=== PATIENT | female | born 1990 | race Caucasian/White ===

== ENCOUNTER → 2024-02-16 07:50 | Outpatient (REF) | payer OTHER, SELFPAY | LOC: HWRAD 07:50 | PROVIDERS: ATTENDING PHYSICIAN Nurse Practitioner | DX: K76.0 Fatty (change of) liver, not elsewhere classified (principal) | CPT/HCPCS: 76700 ==

== ENCOUNTER 2024-06-23 13:27 | Emergency (ER) | payer OTHER, SELFPAY ==
[2024-06-23 13:35] VITALS: BP 122/77
--- NOTE | 2024-06-23 14:06 | ED.GENMED ---
History of Present Illness
General
Chief Complaint: Swelling
Source: patient
Exam Limitations: none
Time Seen by Provider: 06/23/24 14:00
Nursing documentation reviewed up to this point in time: agreed with
History of Present Illness
History of Present Illness:
Patient to ED with complaint of pain and tingling to RLE. Significant varicose veins noted to BLE. Symptoms started this week. Denies fever/chills, recent illness. No history of DVT, PE. Denies any SOB, CP/pressure Brought self to ED for eval.
Past History
Past History
ED Past Medical History: None
ED Past Surgical History:
Social History
Tobacco: Non-smoker
Alcohol: Occasional
Personal:
Review of Systems
Review of Systems
Allergies reviewed?: Yes
All Other Systems: ROS reviewed and negative except as documented in HPI and ROS
Constitutional: Reports no symptoms
EENT: Reports no symptoms
Respiratory: Reports no symptoms
Cardiac: Reports no symptoms
ABD/GI: Reports no symptoms
Musculoskeletal: Reports other (RLE pain, swelling)
Skin: Reports no symptoms
Neurological: Reports no symptoms
Psychiatric: Reports no symptoms
Phy Exam
General Physical Exam
General Presentation: well appearing and no apparent distress
General age: appears stated age
General Skin: warm and dry
General Habitus: normal
General Mental: alert
Musculoskeletal Exam
Musculoskeletal Exam: full ROM, neuro vasc intact and other (No erythema, no wounds)
Skin Exam
Skin Exam: normal color, warm/dry, no rash and other (many varicosities noted BLE)
Psychiatric Exam
Psychiatric Exam: normal mood/affect
Course
Orders/Labs/Results
Orders:
Orders
06/23/24 14:05
US Periph Venous LOWER Ext RT Urgent
Comment:
Reason For Exam: pain, swelling
Vital Signs
Initial and Last Documented VS:
Initial Vital Signs
Temp Pulse Resp BP Pulse Ox
98 F 79 16 122/77 98
06/23/24 13:35 06/23/24 13:35 06/23/24 13:35 06/23/24 13:35 06/23/24 13:35
Last Documented Vital Signs
Temp Pulse Resp BP Pulse Ox
98 F 79 16 122/77 98
06/23/24 13:35 06/23/24 13:35 06/23/24 13:35 06/23/24 13:35 06/23/24 13:35
*Radiology
Radiology exam reviewed: radiology read reviewed
*Pulse Oximetry
Patient hypoxic: no
*Critical Care Note
Total Time (30-74mins, 75-104mins- exclusive of procedures): Not Applicable
Update Note
Update Note:
US results discussed with patient. No evidence of DVT. She isdischarged home and will follow up with PCP on Tuesday.
ED Attending Note
-
Portions of this chart may have been created with voice recognition software.� Occasional wrong word or��sound alike� substitutions may have occurred due to the inherent limitations of voice recognition software.
Discharge Plan
Departure
Patient Disposition: Home (Routine Discharge)
Date of Disposition: 06/23/24
Time of Disposition: 17:05
Patient with high blood pressure during this ER visit?: No
Condition: Good
Covid-19: Not Applicable
Discharge Problem:
Varicose veins of lower extremity with pain
Instructions: Treatment of Varicose Veins of the Leg, Varicose Veins (DC), Ibuprofen
Prescriptions:
No Action
[id number] fum-folic 1 EACH tablet
1 ea PO DAILY
acetaminophen 325 MG tablet
650 mg PO Q4HPRN PRN (Reason: pain) 0RF
sennosides-docusate sodium 1 TABLET tablet
1 tab PO DAILYPRN PRN (Reason: constipation) 0RF
ibuprofen 600 MG tablet
600 mg PO Q6HPRN PRN (Reason: cramps) Qty: 30 0RF
Shahid
Referrals:
Tesha Vizcarra CRNP [Family Provider] - Follow up in 2-3 days
Interventions
Interventions:
*Risk Screen - Suicide Last Done: 06/23/24 15:00
*General Assessment Last Done: 06/23/24 15:00
*Neglect/Abuse Screening Last Done: 06/23/24 15:00
ED- Fall Risk Assessment Last Done: 06/23/24 15:00
*ED COVID-19 Vaccine History Last Done: 06/23/24 15:00
ED- Cardiac Assessment Last Done: 06/23/24 15:00
ED- Pulmonary Assessment Last Done: 06/23/24 15:00
ED-Skin Assessment Last Done: 06/23/24 15:00
Discharge Date and Time
Print Language: [id number]
[2024-06-23 16:00] VITALS: BP 118/74
== END 2024-06-23 17:35 | disposition home or self-care (01) ==
LOC: EMR 13:27
PROVIDERS: EMERGENCY PHYSICIAN Emergency Medicine; FAMILY PHYSICIAN Nurse Practitioner
DX: I83.811 Varicose veins of right lower extremity with pain (principal); M79.89 Other specified soft tissue disorders; M79.604 Pain in right leg; R20.2 Paresthesia of skin
CPT/HCPCS: 99284; 93971

== ENCOUNTER → 2025-09-05 12:51 | Outpatient (REF) | payer OTHER, SELFPAY | LOC: RAD 12:51 | PROVIDERS: ATTENDING PHYSICIAN Student in an Organized Health Care Education/Training Program; FAMILY PHYSICIAN Internal Medicine | DX: K76.0 Fatty (change of) liver, not elsewhere classified (principal) | CPT/HCPCS: 76700 ==